=== PATIENT | female | born 1970 | race Caucasian/White ===

== ENCOUNTER 2025-09-27 10:59 | Emergency (ER) | payer SELFPAY ==
[~2025-09-27] VITALS: Ht 165.1 cm; Wt 78.0 kg
[2025-09-27 11:06] VITALS: O2SAT 99
[2025-09-27 11:24] VITALS: TEMP 36.6; O2SAT 100
[2025-09-27] MEDS ORDERED: IBUP-1455 MT (12:19)
[2025-09-27] MEDS ORDERED: CYCL10TA21 MT (12:19)
[2025-09-27 12:42] VITALS: BP 135/74; PULSE 65; RESP 14
[2025-09-27] MEDS: KETOROLAC 30MG/ML VIAL IM ONE (12:42)
== END 2025-09-27 13:41 | disposition home or self-care (01) ==
LOC: ER 10:59
DX: M54.50 Low back pain, unspecified (principal)
CPT/HCPCS: 99283; 81025; 96372; J1885